=== PATIENT | female | born 1980 | race Caucasian/White ===

== ENCOUNTER → 2020-09-24 | Outpatient (CLI) | payer OTHER ==
[~2020-09-24] MED LIST: NO HOME MEDICATIONS; NORCO 325 MG-51 TAB PO; NORCO 325 MG-7.1 TAB PO; PEPCID 20MG TAB20 MG PO
== END | disposition still patient (30) ==
LOC: MC.RAD 12:00
DX: N64.9 Disorder of breast, unspecified (principal); N63.21 Unspecified lump in the left breast, upper outer quadrant; D24.1 Benign neoplasm of right breast

== ENCOUNTER → 2020-09-29 | Outpatient (CLI) | payer OTHER | LOC: MC.RAD 10:00 | DX: N63.10 Unspecified lump in the right breast, unspecified quadrant (principal); N63.20 Unspecified lump in the left breast, unspecified quadrant; Z98.82 Breast implant status ==

== ENCOUNTER → 2021-11-24 | Outpatient (CLI) | payer SELFPAY | LOC: MC.RAD 09:12 | DX: Z12.31 Encounter for screening mammogram for malignant neoplasm of breast (principal); N63.11 Unspecified lump in the right breast, upper outer quadrant ==

== ENCOUNTER → 2021-11-26 | Outpatient (CLI) | payer OTHER | LOC: MC.RAD 10:49 | DX: N63.10 Unspecified lump in the right breast, unspecified quadrant (principal) | CPT/HCPCS: A4648 ==

== ENCOUNTER → 2023-12-13 | Outpatient (CLI) | payer OTHER | LOC: MC.RAD 10:30 | DX: Z12.31 Encounter for screening mammogram for malignant neoplasm of breast (principal) ==